=== PATIENT | female | born 1990 | race Caucasian/White ===

== ENCOUNTER 2017-12-20 22:30 | Emergency (ER) | payer MEDICAID ==
[2017-12-20 22:37] VITALS: Ht 165.1 cm
[2017-12-21 02:54] VITALS: BP 111/50
== END 2017-12-21 02:54 | disposition home or self-care (01) ==
LOC: ED 22:30
DX: O26.891 Other specified pregnancy related conditions, first trimester (principal); R51 Headache; Z3A.12 12 weeks gestation of pregnancy
CPT/HCPCS: 87804

== ENCOUNTER 2017-12-28 07:05 | Emergency (ER) | payer MEDICAID ==
[~2017-12-28] VITALS: Ht 165.1 cm; Wt 83.0 kg
[2017-12-28 07:42] LABS: BASOPHIL % 1.3 % (0-2); PLATELET COUNT 204 x10^3mcL (130-400); RED CELL DISTRIBUTION WIDTH 12.1 % (11.5-14.5)
[2017-12-28 09:01] LABS: microscopic required? YES; urine erythrocyte 1+ (NEGATIVE)
[2017-12-28 09:29] VITALS: BP 121/74
== END 2017-12-28 09:30 | disposition home or self-care (01) ==
LOC: ED 07:05
PROVIDERS: Emergency Medicine
DX: O20.0 Threatened abortion (principal)
CPT/HCPCS: 36415

== ENCOUNTER 2017-12-28 12:21 | Emergency (ER) | payer MEDICAID ==
[~2017-12-28] VITALS: Ht 165.1 cm; Wt 83.0 kg
[2017-12-28 12:26] VITALS: Ht 165.1 cm; Wt 83.0 kg
[2017-12-28 13:08] VITALS: BP 115/73
== END 2017-12-28 13:08 | disposition home or self-care (01) ==
LOC: ED 12:21
DX: O20.0 Threatened abortion (principal)